=== PATIENT | female | born 1945 | race Native Hawaiian/Other Pacific Islander ===

== ENCOUNTER 2017-11-01 17:02 | Emergency (ER) | payer OTHER ==
[~2017-11-01] VITALS: Ht 160 cm; Wt 91.2 kg
[~2017-11-01 17:02] MED LIST: ACID REDUCER150 MG PO; ACIDOPHILUS1 CAP PO; ALKA-SELTZE2 PO; ALTARUSSIN100 MG/5 M PO; ANTACID & ANTIG1 SUS PO; ASPIRIN/ENTERIC81 MG PO; AZEL137S; BISACODYL LAXAT10 MG RE; BUSPIRONE10 MG PO; CARV12.5 PO; CETI10TA PO; CHLORASEPTIC1.4 % MT; CLON0.5T36 PO; CLOPIDOGREL75 MG PO; DIVALPROEX500 MG PO; DULO30CA PO; DULOXETINE HCL60 MG PO; ENALAPRIL20 MG PO; FERROUS SULF324 MG PO; FERROUS SULF325 M1 PO; FLORASTOR250 MG PO; FURO40TA93 PO; HYDR5TAB9 PO; IBUPROFEN200 MG PO; IMODIUM A-D2 M2 PO; JUVE1 PO; KETOCONAZOLE21 EX; LEVO0.1519 PO; LIPITOR10 MG PO; LIPITOR80 MG PO; METFORMIN HYDR500 MG PO; METO25TA4 PO; MIRALAX3350 N1 PO; MULTI VITAMIN A1 TAB PO; MYRBETRIQ25 MG PO; NYST100016 EX; OMEP20CA PO; PATADAY0.2 % OP; PAXIL20 MG PO; PROMOD PO; SEROQUEL25 MG PO; SEROQUEL300 MG OR; SEROQUEL50 MG OR; SEROQUEL50 MG PO; SIMV20TA2 PO; SYNTHROID137 MCG PO; TESSALON PER100 MG PO; TRAZ100T PO; TRAZ50TA36 PO; VITAMIN D2000 UNIT PO; VITAMIN D32000 UNIT PO; ZANAFLEX2 MG PO; [UNRECOGNIZED DRUG - CODE] PO; [UNRECOGNIZED DRUG - OTHER] PO
[2017-11-01 17:11] VITALS: BP 145/79; TEMP 99
[2017-11-01 17:28] LABS: PLATELET COUNT 189 K/uL (152-353)
[2017-11-01 17:32] LABS: POTASSIUM 3.8 mmol/L (3.6-5.2)
[2017-11-01] MEDS ORDERED: TYLENOL325 MG PO (17:38)
[2017-11-01] MEDS ORDERED: MILK OF MA400 MG/5 M PO (17:39)
[2017-11-01] MEDS ORDERED: POLY GLYCOL3350 M1 PO (17:40)
[2017-11-01] MEDS ORDERED: IMODIUM A-D PO (19:35)
[2017-11-01] MEDS ORDERED: DIVA500T2 PO (19:44)
[2017-11-01] MEDS ORDERED: MILK OF MAGNESIA SUS PO (19:49)
[2017-11-06] MEDS ORDERED: WELLBUTRIN 100 MG PO (10:36)
[2017-11-06] MEDS ORDERED: RISP0.25 PO (10:36)
[2017-11-06] MEDS ORDERED: DULO30CA PO (10:36)
[2017-11-06] MEDS ORDERED: BUSP15TAB2 PO (10:36)
[2017-11-06] MEDS ORDERED: OLANZAPINE10 MG PO (10:36)
[2017-11-06] MEDS ORDERED: NITR100C56 PO (10:36)
== END 2017-11-01 18:04 | disposition other institution (70) ==
LOC: ED 17:02
PROVIDERS: Emergency Medicine
DX: R44.2 Other hallucinations (principal); F28 Other psychotic disorder not due to a substance or known physiological condition; Z04.6 Encounter for general psychiatric examination, requested by authority
CPT/HCPCS: 80053; 85027; 93005; 99285